=== PATIENT | female | born 1955 ===

== ENCOUNTER 2018-02-23 10:17 | Emergency (ER) | payer OTHER ==
[2018-02-23 10:21] VITALS: BMI 27.2
[2018-02-23 10:23] VITALS: TEMP 98.5
--- NOTE | 2018-02-23 11:37 | ED PDOC ---
Syncope/Near Syncope/Dizziness Time Seen by Provider: 02/23/18 10:22 Chief Complaint (Nursing): Dizziness/Lightheaded Chief Complaint (Provider): Dizzy History Per: Patient Additional Complaint(s): Patient is a 62 yo female, reports a PMH of Anxiety, presents to ED for evaluation of came in with c/o redness to her right eye. No visual changes, no pain, itching or discharge. pt reports she woke up to the redness tis am; however, Pt admits to feeling dizzy yesterday. pt notes when seeing her eye this am, she became very anxious. Past Medical History Reviewed: Nursing Documentation, Vital Signs Vital Signs: Last Vital Signs Temp 98.5 F 02/23/18 10:21 Pulse 92 H 02/23/18 10:52 Resp 17 02/23/18 10:52 BP 110/61 02/23/18 10:52 Pulse Ox 97 02/23/18 10:52 - Medical History PMH: No Chronic Diseases - Surgical History Surgical History: Cholecystectomy - Family History Family History: States: No Known Family Hx - Living Arrangements Living Arrangements: With Family - Social History Current smoker - smoking cessation education provided: No Alcohol: None Drugs: Denies - Home Medications Home Medications: Ambulatory Orders Medication Instructions Recorded Acetaminophen 650 mg PO Q6 PRN #12 tab 07/06/14 Famotidine [Pepcid] 20 mg PO BID #10 tab 07/06/14 Promethazine HCl/Codeine 5 ml PO BID PRN #100 ml 07/06/14 [Promethazine HCl-Codeine Phosphate 10 mg/5 ml] Ciprofloxacin/Ciprofloxa HCl 500 mg PO BID #14 tab 07/08/14 [Ciprofloxacin] - Allergies Allergies/Adverse Reactions: Allergies Allergy/AdvReac Type Severity Reaction Status Date / Time No Known Allergies Allergy Verified 07/06/14 12:19 Review of Systems ROS Statement: Except As Marked, All Systems Reviewed And Found Negative Eyes: Positive for: Redness Neurological: Positive for: Dizziness Physical Exam - Reviewed Nursing Documentation Reviewed: Yes Vital Signs Reviewed: Yes - Physical Exam Appears: Positive for: Well, Non-toxic, No Acute Distress Head Exam: Positive for: ATRAUMATIC, NORMAL INSPECTION, NORMOCEPHALIC Skin: Positive for: Normal Color, Warm, DRY Eye Exam: Positive for: EOMI, PERRL, Other (subconjunctival hemorrhage noted) ENT: Positive for: Normal ENT Inspection Neck: Positive for: Normal, Painless ROM Cardiovascular/Chest: Positive for: Regular Rate, Rhythm Respiratory: Positive for: CNT, Normal Breath Sounds Gastrointestinal/Abdominal: Positive for: Normal Exam, Soft Back: Positive for: Normal Inspection Extremity: Positive for: Normal ROM Neurologic/Psych: Positive for: Alert, Oriented - Laboratory Results Result Diagrams: 02/23/18 11:29 02/23/18 11:29 - ECG O2 Sat by Pulse Oximetry: 97 Medical Decision Making Medical Decision Making: Diagnostics ordered Labs resulted and reviewed with pt who demonstrated full understanding Pt appears much more calm after discussion. Pt instructed on healing time for subcunjunctival hemorrhages and advised to follow up with PCP, return to ED with any concerns Disposition - Clinical Impression Clinical Impression: Subconjunctival hemorrhage - Patient ED Disposition Is Patient to be Admitted: No - Disposition Disposition: Routine/Home Disposition Time: 12:00 Condition: STABLE Instructions: Subconjunctival Hemorrhage Forms: [facility] (Moroccan) Print Language: UKRAINIAN
[2018-02-23 11:44] LABS: BASO % 0.3 % (0.0-2.0); EOS # 0.1 K/uL (0.0-0.7); EOS % 2.3 % (0.0-4.0); HEMOGLOBIN 12.9 g/dL (12.0-16.0); LYMPH # 2.1 K/uL (1.0-4.3); LYMPH % 33.6 % (20.0-40.0); MEAN CELL VOLUME 93.6 fl (81.0-99.0); MEAN CORPUSCULAR HEMOGLOBIN 31.2 pg (27.0-31.0); MEAN CORPUSCULAR HGB CONC 33.3 g/dL (33.0-37.0); MEAN PLATELET VOLUME 7.6 fl (7.2-11.7); MONO # 0.3 K/uL (0.0-0.8); MONO % 4.9 % (0.0-10.0); NEUT # 3.6 K/uL (1.8-7.0); NEUT % 58.9 % (50.0-75.0); RBC 4.13 Mil/uL (3.80-5.20); RED CELL DISTRIBUTION WIDTH 13.6 % (11.5-14.5); WHITE BLOOD COUNT 6.2 K/uL (4.8-10.8)
[2018-02-23 11:47] LABS: INR 0.9; PROTHROMBIN TIME 10.3 Seconds (9.8-13.1)
[2018-02-23 11:49] LABS: ALB/GLOB RATIO 1.6 (1.0-2.1); ALBUMIN 4.2 g/dL (3.5-5.0); ALT/SGPT 72 U/L (9-52); AST/SGOT 51 U/L (14-36); BLOOD UREA NITROGEN 15 mg/dl (7-17); GFR NON-AFRICAN AMERICAN > 60
[2018-02-23 11:50] LABS: PARTIAL THROMBOPLASTIN TIME 41.3 Seconds (25.6-37.1)
[2018-02-23 12:49] VITALS: BP 109/63; PULSE 69; RESP 16; O2SAT 98
--- NOTE | 2018-02-24 10:05 | CARD ---
APPROVED REPORT Date of service: 02/23/2018 EKG Measurement Heart [id number] <Conclusion> Normal sinus rhythm Normal ECG
== END 2018-02-23 12:54 | disposition home or self-care (01) ==
LOC: H.ER 10:17
DX: R42 Dizziness and giddiness (principal); H11.30 Conjunctival hemorrhage, unspecified eye